=== PATIENT | male | born 1980 | race Caucasian/White ===

== ENCOUNTER 2020-05-20 16:59 | Emergency (ER) | payer BC ==
[~2020-05-20] VITALS: Ht 180.3 cm; Wt 78.9 kg
[~2020-05-20 16:59] MED LIST: AUGMENTIN 500-1 EACH PO; HYDROCODONE-AP1 EAC6 PO
[2020-05-20] MEDS ORDERED: FLEXERIL PO (19:06)
[2020-05-20] MEDS ORDERED: NORCO5 PO (19:06)
[2020-05-20 19:29] VITALS: BP 135/96
== END 2020-05-20 19:39 | disposition home or self-care (01) ==
LOC: ER 16:59
DX: R20.2 Paresthesia of skin (principal); F17.210 Nicotine dependence, cigarettes, uncomplicated; Z79.899 Other long term (current) drug therapy; V43.52XA Car driver injured in collision with other type car in traffic accident, initial encounter; Y92.89 Other specified places as the place of occurrence of the external cause; Y93.89 Activity, other specified; Y99.8 Other external cause status